=== PATIENT | male | born 1970 | race Caucasian/White ===

== ENCOUNTER → 2016-09-14 | Outpatient (CLI) | payer BC ==
[~2016-09-14] VITALS: Ht 175.3 cm; Wt 136.0 kg
[~2016-09-14] MED LIST: HYDROCHLOROTHIA25 MG PO; NORVASC5 MG PO; OMEPRAZOLE40 M1 PO; RELAFEN500 M1 PO; ZESTRIL40 MG PO
== END | disposition home or self-care (01) ==
LOC: AMB 12:13
PROC: 0DB48ZX Excision of Esophagogastric Junction, Via Natural or Artificial Opening Endoscopic, Diagnostic (ICD-10-PCS; principal; 2016-09-14)
PROC: 0DB68ZX Excision of Stomach, Via Natural or Artificial Opening Endoscopic, Diagnostic (ICD-10-PCS; principal; 2016-09-14)
DX: K22.70 Barrett's esophagus without dysplasia (principal); K29.70 Gastritis, unspecified, without bleeding; K21.9 Gastro-esophageal reflux disease without esophagitis; Z98.84 Bariatric surgery status; I10 Essential (primary) hypertension; Z87.891 Personal history of nicotine dependence
CPT/HCPCS: 80048; 88305; 88342 TC; 93005; J3010